=== PATIENT | male | born 1990 | race African-American/Black ===

== ENCOUNTER 2017-06-25 02:50 | Observation (INO) | payer SELFPAY ==
[~2017-06-25] VITALS: Ht 175.3 cm; Wt 100.0 kg
[2017-06-25] VITALS (10 sets, daily range): BP systolic 108–189; BP diastolic 61–100; PULSE 58–114; RESP 12–23; TEMP 97.6–98.1; O2SAT 94–100
--- NOTE | 2017-06-25 03:12 | PD ---
HPI Chief Complaint: Cardiac Complaint Time Seen by Provider: 03:01 Travel History International Travel<30 days: No Contact w/Intl Traveler<30days: No Traveled to known affect area: No History of Present Illness HPI 30 MIN [employer], FELT SUBSTERNAL CHEST PRESSURE, NONRAD, PALPITATIONS, WHILE AT REST. NO PCP ALL:NKDA PMH: HTN PFSH Past Medical History Hypertension: Yes Tetanus Vaccination: Unknown Influenza Vaccination: No Past Surgical History Surgical History: No Previous Surgery Social History Alcohol Use: No Tobacco Use: No Substance Use: Yes (marijuana daily) Allergies-Medications (Allergen,Severity, Reaction): Coded Allergies: No Known Allergies (Unverified , 06/25/17) Reported Meds & Prescriptions Reported Meds & Active Scripts Active Review of Systems Except as stated in HPI: all other systems reviewed are Neg Cardiovascular: Positive: Chest Pain or Discomfort, Palpitations, Tachycardia Physical Exam Narrative GENERAL: SKIN: Warm and dry. HEAD: Atraumatic. Normocephalic. EYES: Pupils equal and round. No scleral icterus. No injection or drainage. ENT: No nasal bleeding or discharge. Mucous membranes pink and moist. NECK: Trachea midline. No JVD. CARDIOVASCULAR: TACHYCARDIA WITH Regular Rhythm. RESPIRATORY: No accessory muscle use. Clear to auscultation. Breath sounds equal bilaterally. GASTROINTESTINAL: Abdomen soft, non-tender, nondistended. MUSCULOSKELETAL: Extremities without clubbing, cyanosis, or edema. No obvious deformities. NEUROLOGICAL: Awake and alert. No obvious cranial nerve deficits. Motor grossly within normal limits. Five out of 5 muscle strength in the arms and legs. Normal speech. PSYCHIATRIC: Appropriate mood and affect; insight and judgment normal. Data Data Last Documented VS Orders Orders Complete Blood Count With Diff (06/25/17 03:02) Comprehensive Metabolic Panel (06/25/17 03:02) Ckmb (Isoenzyme) Profile (06/25/17 03:02) Troponin I (06/25/17 03:02) B-Type Natriuretic Peptide (06/25/17 03:02) Lipase (06/25/17 03:02) Urinalysis - C+S If Indicated (06/25/17 03:02) Thyroid Stimulating Hormone (06/25/17 03:02) Chest, Single Ap (06/25/17 03:02) Iv Access Insert/Monitor (06/25/17 03:02) Ecg Monitoring (06/25/17 03:02) Oximetry (06/25/17 03:02) Drug Screen, Random Urine (06/25/17 03:02) Alcohol (Ethanol) (06/25/17 03:02) Salicylates (Aspirin) (06/25/17 03:02) Tylenol (Acetaminophen) (06/25/17 03:02) Aspirin Chew (Aspirin Chew) (06/25/17 03:15) Morphine Inj (Morphine Inj) (06/25/17 03:15) Nitroglycerin 2% Oint (Nitroglycerin 2% (06/25/17 03:15) Potassium Chloride (Kcl) (06/25/17 03:45) CKMB (06/25/17 03:05) CKMB% (06/25/17 03:05) Admit Order (Ed Use Only) (06/25/17 04:14) Labs Laboratory Tests Test 06/25/17 03:05 White Blood Count 10.9 TH/MM3 Red Blood Count 5.29 MIL/MM3 Hemoglobin 13.8 GM/DL Hematocrit 41.5 % Mean Corpuscular Volume 78.5 FL Mean Corpuscular Hemoglobin 26.1 PG Mean Corpuscular Hemoglobin Concent 33.3 % Red Cell Distribution Width 13.8 % Platelet Count 358 TH/MM3 Mean Platelet Volume 8.9 FL Neutrophils (%) (Auto) 43.7 % Lymphocytes (%) (Auto) 42.5 % Monocytes (%) (Auto) 11.6 % Eosinophils (%) (Auto) 1.3 % Basophils (%) (Auto) 0.9 % Neutrophils # (Auto) 4.7 TH/MM3 Lymphocytes # (Auto) 4.6 TH/MM3 Monocytes # (Auto) 1.3 TH/MM3 Eosinophils # (Auto) 0.1 TH/MM3 Basophils # (Auto) 0.1 TH/MM3 CBC Comment DIFF FINAL Differential Comment Blood Urea Nitrogen 7 MG/DL Creatinine 1.21 MG/DL Random Glucose 104 MG/DL Total Protein 8.7 GM/DL Albumin 4.3 GM/DL Calcium Level 9.4 MG/DL Alkaline Phosphatase 103 U/L Aspartate Amino Transf (AST/SGOT) 16 U/L Alanine Aminotransferase (ALT/SGPT) 21 U/L Total Bilirubin 0.3 MG/DL Sodium Level 139 MEQ/L Potassium Level 2.9 MEQ/L Chloride Level 103 MEQ/L Carbon Dioxide Level 27.1 MEQ/L Anion Gap 9 MEQ/L Estimat Glomerular Filtration Rate 89 ML/MIN Total Creatine Kinase 174 U/L Creatine Kinase MB LESS THAN 0.5 NG/ML Troponin I LESS THAN 0.02 NG/ML B-Type Natriuretic Peptide 8 PG/ML Lipase 78 U/L Thyroid Stimulating Hormone 3rd Gen 4.290 uIU/ML Salicylates Level 2.2 MG/DL Acetaminophen Level LESS THAN 2.0 MCG/ML Ethyl Alcohol Level LESS THAN 3 MG/DL MDM Medical Decision Making Medical Screen Exam Complete: Yes Emergency Medical Condition: Yes Medical Record Reviewed: Yes Interpretation(s) ST 109, BASELINE MOTION, INVERTED T WAVES ON V4-V6 AND I Differential Diagnosis stemi v nonstemi v pna v ptx v electrolyte abnl v anemia v dehydration Narrative Course due to hypokalemia and e/o lateral ischemia on ekg will admit for further evaluation and care Diagnosis Primary Impression: CP R/O GA Additional Impressions: ABNL EKG Hypokalemia Admitting Information Admitting Physician Requests: Observation Scripts No Active Prescriptions or Reported Meds Farhna Strauss MD Jun 25, 2017 03:12
[2017-06-25] MEDS ORDERED: ASPIRIN 81 MG CHEW TAB PO ONE (03:15)
[2017-06-25] MEDS ORDERED: MORPHINE SULFATE 4 MG/ML INJ IV PUSH ONE (03:15)
[2017-06-25] MEDS ORDERED: NITROGLYCERIN 2% OINT 1 GM PACKET TOP ONE (03:15)
[2017-06-25 03:21] LABS: AUTOMATED NEUTROPHIL # 4.7 TH/MM3 (1.8-7.7); BASOPHIL # 0.1 TH/MM3 (0-0.2); BASOPHIL % 0.9 % (0.0-2.0); EOSINOPHIL # 0.1 TH/MM3 (0-0.4); EOSINOPHIL % 1.3 % (0.0-4.0); HEMATOCRIT 41.5 % (39.0-51.0); HEMO FLAGS DIFF FINAL; LYMPH % 42.5 % (9.0-44.0); LYMPHOCYTE # 4.6 TH/MM3 (1.0-4.8); MEAN CELL VOLUME 78.5 FL (80.0-100.0); MEAN CORPUSCULAR HEMOGLOBIN 26.1 PG (27.0-34.0); MEAN CORPUSCULAR HGB CONC 33.3 % (32.0-36.0); MONO % 11.6 % (0.0-8.0); NEUT % 43.7 % (16.0-70.0); PLATELET COUNT 358 TH/MM3 (150-450); RED BLOOD COUNT 5.29 MIL/MM3 (4.50-5.90); RED CELL DISTRIBUTION WIDTH 13.8 % (11.6-17.2); WHITE BLOOD COUNT 10.9 TH/MM3 (4.0-11.0)
[2017-06-25 03:44] LABS: ALCOHOL LESS THAN 3 MG/DL (0-5); ANION GAP 9 MEQ/L (5-15); AST (GOT) 16 U/L (15-37); BICARBONATE 27.1 MEQ/L (21.0-32.0); BLOOD UREA NITROGEN 7 MG/DL (7-18); CHLORIDE 103 MEQ/L (98-107); GLOMERULAR FILTRATION RATE 89 ML/MIN (>89); SODIUM (NA) 139 MEQ/L (136-145)
[2017-06-25 03:45] LABS: POTASSIUM 2.9 MEQ/L (3.5-5.1)
[2017-06-25] MEDS ORDERED: POTASSIUM CHLORIDE 20 MEQ CONTROLLED RELEASE TAB PO ONE (03:45)
[2017-06-25 04:08] LABS: ALKALINE PHOSPHATASE 103 U/L (45-117); ALT (GPT) 21 U/L (12-78); CREATINE KINASE 174 U/L (39-308); TOTAL BILIRUBIN ADULT 0.3 MG/DL (0.2-1.0)
--- NOTE | 2017-06-25 04:08 | RADRPT ---
EXAM DATE/TIME: 06/25/2017 03:24 [facility] COMPARISON: No previous studies available for comparison. INDICATIONS : Weakness. Chest pressure. Palpitations. MEDICAL HISTORY : None. SURGICAL HISTORY : None. ENCOUNTER: Initial ACUITY: 1 day PAIN SCORE: 10 LOCATION: Bilateral chest FINDINGS: A single view of the chest demonstrates the lungs to be symmetrically aerated without evidence of mas s, infiltrate or effusion. The cardiomediastinal contours are unremarkable. Osseous structures are intact. CONCLUSION: The lungs are clear. Jules Roy MD on June 25, 2017 at 4:07 Board Certified Radiologist. This report was verified electronically.
[2017-06-25 04:09] LABS: ACETAMINOPHEN LESS THAN 2.0 MCG/ML (10.0-30.0)
[2017-06-25] MEDS ORDERED: ONDANSETRON HCL 4 MG/2 ML VIAL IV PRN (04:15)
[2017-06-25] MEDS ORDERED: MORPHINE SULFATE 4 MG/ML INJ IV PRN (04:15)
[2017-06-25] MEDS ORDERED: NITROGLYCERIN 0.4 MG SL 25 TABS/BTL SL PRN (04:15)
[2017-06-25 04:35] LABS: CKMB LESS THAN 0.5 NG/ML (0.5-3.6)
[2017-06-25 04:45] LABS: BACTERIA, URINE RARE /hpf; BLOOD, URINE NEG (NEG); COMMENT (UR) CULT NOT INDICATED; CULTURE IF INDICATED CULT NOT INDICATED; GLUCOSE,URINE NEG (NEG); KETONE, URINE NEG (NEG); MUCUS URINE FEW /lpf (OCC); NITRITE,URINE NEG (NEG); PH, URINE 5.5 (5.0-8.5); URINE COLOR YELLOW (YELLW/STRAW)
[2017-06-25] MEDS: POTASSIUM CHLORIDE 20 MEQ CONTROLLED RELEASE TAB PO SCH ×2 (06:10→09:10)
[2017-06-25 07:13] LABS: CREATINE KINASE 133 U/L (39-308)
[2017-06-25 07:25] LABS: CKMB LESS THAN 0.5 NG/ML (0.5-3.6)
[2017-06-25] MEDS ORDERED: ASPIRIN 325 MG TAB PO SCH (09:00)
[2017-06-25 10:09] LABS: ANION GAP 7 MEQ/L (5-15); BICARBONATE 26.6 MEQ/L (21.0-32.0); BLOOD UREA NITROGEN 9 MG/DL (7-18); CHLORIDE 104 MEQ/L (98-107); CREATINE KINASE 126 U/L (39-308); GLOMERULAR FILTRATION RATE 99 ML/MIN (>89); POTASSIUM 3.9 MEQ/L (3.5-5.1); SODIUM (NA) 138 MEQ/L (136-145)
[2017-06-25 10:28] LABS: CKMB LESS THAN 0.5 NG/ML (0.5-3.6)
--- NOTE | 2017-06-25 13:05 | HHI.DCPOC ---
Discharge Care Plan Diagnosis: (1) Hypertension (2) Hypokalemia Goals to Promote Your Health * To prevent worsening of your condition and complications * To maintain your health at the optimal level Directions to Meet Your Goals Take your medications as prescribed Follow your dietary instruction Follow activity as directed Keep your appointments as scheduled Take your immunizations and boosters as scheduled If your symptoms worsen call your PCP, if no PCP go to Urgent Care Center or Emergency Room Smoking is Dangerous to Your Health. Avoid second hand smoke Call the 24-hour hour crisis hotline for domestic abuse at Jace Evans Jun 25, 2017 13:05
--- NOTE | 2017-06-25 14:59 | EKG ---
Date Performed: 06/25/2017 Time Performed: 03:02:17 PTAGE: 26 years EKG: SINUS TACHYCARDIA VOLTAGE CRITERIA FOR LVH MODERATE T-WAVE ABNORMALITY, ABNORMAL ECG NO PREVIOUS TRACING DOCTOR: Elder Martin Interpretating Date/Time 06/25/2017 14:58:13
--- NOTE | 2017-06-25 15:08 | HHI.HP ---
HPI Primary Care Physician No Primary Care Physician Chief Complaint Chest pain and palpitations History of Present Illness Mr. Quiñones is a 26-year-old male patient with a known medical history of hypertension who presented to the ED via private vehicle with complaints of chest tightness and palpitations. 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 Denies any recognizable aggravating or relieving factors. States once the pain occurred he immediately came to the ED and upon presentation pain and palpitations eventually subsided. Overall lasting roughly 30 minutes. Denies any radiation of pain. Denies any associated symptoms including nausea, vomiting, or diaphoresis. Patient has been told in the past that he has hypertension but does not have a PCP nor has ever taken any medication to control his blood pressure. Review of Systems Consitutional: DENIES: Fever, Chills Respiratory: DENIES: Shortness of breath Cardiovascular: COMPLAINS OF: Chest pain, Palpitations Gastrointestinal: DENIES: Nausea, Vomiting, Change in bowel habits Past Family Social History Allergies: Coded Allergies: No Known Allergies (Unverified , 06/25/17) Past Medical History Hypertension Daily marijuana use Past Surgical History Denies any surgical history. Reported Medications Reported Meds & Active Scripts Active Family History Denies any significant family medical history. Social History Patient denies any current tobacco use. Denies any alcohol use. Does admit to daily marijuana use. Drug screen performed in ED, positive for opiates and cannabis Physical Exam Vital Signs Vital Signs Date Time Temp Pulse Resp B/P Pulse Ox O2 Delivery O2 Flow Rate FiO2 06/25/17 13:29 97.6 58 16 127/70 95 06/25/17 10:35 68 23 123/67 95 Room Air 06/25/17 07:24 98.1 83 18 116/61 97 Room Air 06/25/17 06:32 88 108/66 96 Room Air 06/25/17 04:22 95 06/25/17 04:13 98 12 134/61 94 06/25/17 03:05 114 20 189/99 99 Room Air 06/25/17 03:00 114 20 189/99 100 Room Air 06/25/17 02:55 112 06/25/17 02:54 112 16 178/100 97 Physical Exam GENERAL: Well-nourished, well-developed male patient, lying in bed in nad. SKIN: Warm and dry. HEAD: Atraumatic. Normocephalic. EYES: Pupils equal and round. No scleral icterus. No injection or drainage. ENT: No nasal bleeding or discharge. Mucous membranes pink and moist. NECK: Trachea midline. No JVD. CARDIOVASCULAR: Regular rate and rhythm. S1 and S2 present. No murmur appreciated. RESPIRATORY: No accessory muscle use. Clear to auscultation. Breath sounds equal bilaterally. GASTROINTESTINAL: Abdomen soft, non-tender, nondistended. MUSCULOSKELETAL: Extremities without clubbing, cyanosis, or edema. No obvious deformities. NEUROLOGICAL: Awake and alert. No obvious cranial nerve deficits. Motor grossly within normal limits. Five out of 5 muscle strength in the arms and legs. Normal speech. PSYCHIATRIC: Appropriate mood and affect; insight and judgment normal. Laboratory Laboratory Tests Test 06/25/17 06/25/17 06/25/17 06/25/17 03:05 04:20 06:20 09:05 White Blood Count 10.9 Red Blood Count 5.29 Hemoglobin 13.8 Hematocrit 41.5 Mean Corpuscular Volume 78.5 Mean Corpuscular Hemoglobin 26.1 Mean Corpuscular Hemoglobin 33.3 Concent Red Cell Distribution Width 13.8 Platelet Count 358 Mean Platelet Volume 8.9 Neutrophils (%) (Auto) 43.7 Lymphocytes (%) (Auto) 42.5 Monocytes (%) (Auto) 11.6 Eosinophils (%) (Auto) 1.3 Basophils (%) (Auto) 0.9 Neutrophils # (Auto) 4.7 Lymphocytes # (Auto) 4.6 Monocytes # (Auto) 1.3 Eosinophils # (Auto) 0.1 Basophils # (Auto) 0.1 CBC Comment DIFF FINAL Differential Comment Sodium Level 139 138 Potassium Level 2.9 3.9 Chloride Level 103 104 Carbon Dioxide Level 27.1 26.6 Anion Gap 9 7 Blood Urea Nitrogen 7 9 Creatinine 1.21 1.10 Estimat Glomerular Filtration 89 99 Rate Random Glucose 104 146 Calcium Level 9.4 8.6 Total Bilirubin 0.3 Aspartate Amino Transf 16 (AST/SGOT) Alanine Aminotransferase 21 (ALT/SGPT) Alkaline Phosphatase 103 Total Creatine Kinase 174 133 126 Creatine Kinase MB LESS THAN 0.5 LESS THAN 0.5 LESS THAN 0.5 Troponin I LESS THAN 0.02 LESS THAN 0.02 LESS THAN 0.02 B-Type Natriuretic Peptide 8 Total Protein 8.7 Albumin 4.3 Lipase 78 Thyroid Stimulating Hormone 4.290 3rd Gen Salicylates Level 2.2 Acetaminophen Level LESS THAN 2.0 Ethyl Alcohol Level LESS THAN 3 Urine Color YELLOW Urine Turbidity CLEAR Urine pH 5.5 Urine Specific [place] 1.023 Urine Protein TRACE Urine Glucose (UA) NEG Urine Ketones NEG Urine Occult Blood NEG Urine Nitrite NEG Urine Bilirubin NEG Urine Urobilinogen LESS THAN 2.0 Urine Leukocyte Esterase NEG Urine RBC 1 Urine WBC 2 Urine Bacteria RARE Urine Mucus FEW Microscopic Urinalysis Comment CULT NOT INDICATED Urine Opiates Screen POS Urine Barbiturates Screen NEG Urine Amphetamines Screen NEG Urine Benzodiazepines Screen NEG Urine Cocaine Screen NEG Urine Cannabinoids Screen POS Result Diagram: 06/25/1730406/25/17904 Imaging Last 24 hours Impressions Chest X-Ray 06/25/17301 Signed Impressions: Service Date/Time: , June 25, 2017 03:24 - CONCLUSION: The lungs are clear. Jules Roy MD Assessment and Plan Assessment and Plan * Atypical chest pain: Admitted to the chest pain center. Serial EKGs and troponins ordered fir ruling out purposes. All unremarkable. CXR unremarkable. Patient seen and examined by Dr. Martin in the chest pain center. It was determined patient has been ruled out for any concerns of ischemia or cardiovascular disease. Patient will be discharged and encouraged to establish a PCP and gain tight control of BP. * Hypokalemia: K 2.9. Status post replacement. Redraw 3.5. * Hypertension: BP elevated on presentation. Previous diagnosis with no current antihypertensives. Will write prescription for Norvasc upon discharge and encouraged to follow up with PCP in the outpatient setting. Patient educated about importance of strict control and diet recommendations. Patient is stable at this time and agreeable to the plan. Jace Evans Jun 25, 2017 15:08
--- NOTE | 2017-06-25 15:17 | EKG ---
Date Performed: 06/25/2017 Time Performed: 06:16:02 PTAGE: 26 years EKG: Sinus rhythm MINIMAL VOLTAGE CRITERIA FOR LVH, CONSIDER NORMAL VARIANT MODERATE T-WAVE ABNORMALITY ABNORMAL ECG S mario PREVIOUS TRACING , no significant change noted DOCTOR: Elder Martin Interpretating Date/Time 06/25/2017 15:16:59
--- NOTE | 2017-06-25 16:42 | EKG ---
Date Performed: 06/25/2017 Time Performed: 09:12:20 PTAGE: 26 years EKG: Sinus rhythm LEFT VENTRICULAR HYPERTROPHY AND ST-T CHANGE ABNORMAL ECG PREVIOUS TRACING : 06/25/2017 06.16 Compared to prior tracing no significant change DOCTOR: Matt Head Interpretating Date/Time 06/25/2017 16:41:02
== END 2017-06-25 14:36 | disposition home or self-care (01) ==
LOC: NEPC 02:50 → NEDA 04:16 → NEPGCP 12:33
PROVIDERS: ADMIT Internal Medicine Cardiovascular Disease; ATTEND Internal Medicine Cardiovascular Disease
DX: R07.89 Other chest pain (principal); R00.0 Tachycardia, unspecified; I10 Essential (primary) hypertension; I51.7 Cardiomegaly; E87.6 Hypokalemia; F12.90 Cannabis use, unspecified, uncomplicated
CPT/HCPCS: 71010; 80048; 80053; 80307; 81001; 82550; 82552; 83690; 83880; 84443; 84484; 85025; 93005; 96374; 99285; G0378; J2270